=== PATIENT | male | born 1975 | race Caucasian/White ===

== ENCOUNTER 2017-11-20 12:57 | Emergency (ER) | payer OTHER ==
[2017-11-20] MEDS: HYDROcodone/APAP 5/325MG 1 TAB TABLET PO (13:30)
[2017-11-20] MEDS: LIDOCAINE 2%/EPI 1:100,000 20 ML VIAL. INJ (14:00)
[2017-11-20] MEDS: DIPHTH,PERTUSS(ACELL),TET TOX 0.5 ML DISP.SYRIN. VAX IM (14:40)
== END 2017-11-20 14:47 | disposition home or self-care (01) ==
LOC: ER 12:57
DX: S81.012A Laceration without foreign body, left knee, initial encounter (principal); I10 Essential (primary) hypertension; E78.00 Pure hypercholesterolemia, unspecified; Z88.2 Allergy status to sulfonamides; Z88.1 Allergy status to other antibiotic agents; W29.3XXA Contact with powered garden and outdoor hand tools and machinery, initial encounter; Y93.89 Activity, other specified; Y92.89 Other specified places as the place of occurrence of the external cause; Y99.8 Other external cause status
CPT/HCPCS: 12004; 73564; 90471; 90715; 99284-25; J3490